=== PATIENT | female | born 1955 | race Caucasian/White ===

== ENCOUNTER 2019-02-28 13:20 | Observation (INO) | payer OTHER ==
[~2019-02-28] VITALS: Ht 165.1 cm; Wt 89.4 kg
[~2019-02-28 13:20] MED LIST changes: -DULO60CA56 PO; -OMEP-125 PO; -ROSU5TAB8 PO; -SITA100T PO
[2019-02-28] MEDS ORDERED: DULO60CA56 PO (13:39)
[2019-02-28] MEDS ORDERED: NS(*) 0.9% 1000 ML BAG 1,000 ML IV ONE ×3 (13:45→16:50)
[2019-02-28] MEDS ORDERED: ASPIRIN 81 MG CHEW PO ONE (13:45)
--- NOTE | 2019-02-28 13:49 | EKG ---
FACILITY: [facility] - [place] PATIENT NAME: TEREZA KAT : [id number] MR: [id number] V: [id number] EXAM DATE: ORDERING PHYSICIAN: DOUG ADORNO TECHNOLOGIST: BRIDGET Mcclain Reason : Blood Pressure : / mmHG Vent. Rate : 078 BPM Atrial Rate : 078 BPM P-R Int : 158 ms QRS Dur : 096 ms QT Int : 396 ms P-R-T Axes : 061 097 079 degrees QTc Int : 451 ms Normal sinus rhythm Low voltage QRS Borderline ECG When compared with ECG of 09-SEP-2017 18:42, No significant change was found Confirmed by STEFANY ROPER ([id number]) on 03/01/2019 6:38:08 AM Referred By: Confirmed By:STEFANY ROPER
[2019-02-28 14:06] LABS: PLATELET COUNT, AUTOMATED 419 K/uL (150-450)
[2019-02-28] MEDS ORDERED: IOPAMIDOL 76% 150 ML INFUS BTL 150 ML ONE (14:09)
[2019-02-28] MEDS ORDERED: NS(*) 0.9% 50 ML BAG 50 ML ONE (14:09)
--- NOTE | 2019-02-28 14:41 | RADIOLOGY IMAGING REPORT ---
FACILITY: [facility] PATIENT NAME: Neha Nielsen : 1955 MR: [id number] V: [id number] EXAM DATE: ORDERING PHYSICIAN: DOUG ADORNO TECHNOLOGIST: Location: [facility] - [place] Patient: Neha Nielsen : 1955 Visit/Account:[id number] Date of Sevice: 02/28/2019 2 VIEWS CHEST INDICATION: Chest pain. Syncope. COMPARISON: 09/09/2017. FINDINGS: Cardiomediastinal silhouette and pulmonary vessels within normal limits. There is no focal infiltrate or lobar consolidation. There is no pneumothorax or pleural effusion. No nodule. Upper abdomen is unremarkable. No acute bony abnormality. IMPRESSION: 1. No acute cardiopulmonary process. Report Dictated By: Abilio Wood at 02/28/2019 2:35 PM Report E-Signed By: Abilio Wood at 02/28/2019 2:36 PM WSN:[id number]
--- NOTE | 2019-02-28 14:53 | ER Report ---
History and Physical Time Seen By MD: 13:50 Hx. of Stated Complaint: PATIENT FOUND ON BATHROOM FLOOR.TATES SHE IS WEAK AND HAS DEC LOC. STATES ABD PAIN THAT FEELS LIKE SHE NEEDDS TO HAVE A BM. CLAMY TO TOUCH. HPI/ROS CHIEF COMPLAINT: Syncope HISTORY OF PRESENT ILLNESS: 63-year-old female history of diabetes had a witne ssed correction unwitnessed syncopal event she said that she got this morning had her normal breakfast was having a bowel movement and felt lightheaded and dizzy Off the Commode When She Was Going to the Sink She Got on Her Hands and Knees [place] Lightheaded and Had a with Unwitnessed Syncopal Episode. Patient That She Got up Herself off Sent Him Back on the Floor the 2nd Episode She Also Believes She Had Loss of Consciousness. Patient on Arrival Here Is Diaphoretic She Is Denying Any Chest Pain at This Time Feels Nauseated with Some Mild Abdominal Pain She Had an Active Bowel Movement Here That Had a Very Pungent Smell of C. difficile Patients Afterward She Did Feel Better since She Has Been Eating or Drinking Much Lately Denies Any Additional Complaints at This Time REVIEW OF SYSTEMS: Respiratory: No cough, no dyspnea. Cardiovascular: No chest pain, no palpitations. Gastrointestinal: No emesis mild abdominal discomfort relieved with bowel movement Musculoskeletal: No back pain. Remainder of the 14 system rev: Yes Allergies: Coded Allergies: No Known Allergies (Verified Allergy, Mild, 02/28/19) Home Meds Reported Medications Duloxetine Hcl (CYMBALTA) 60 Mg Capsule.dr, 60 MG PO DAILY, #10 CAP 02/28/19 Metformin Hcl (METFORMIN HCL) 1,000 Mg Tablet, 1 TAB PO BID, TAB 09/09/17 Rosuvastatin Calcium (CRESTOR) 10 Mg Tab, 10 MG PO QDAY, #5 TAB 09/09/17 Sitagliptin Phosphate (JANUVIA) 25 Mg Tablet, 25 MG PO QDAY 09/09/17 Levothyroxine Sodium (LEVOTHYROXINE SODIUM) 100 Mcg Tablet, 100 MCG PO QDAY, TAB 09/09/17 Reviewed Nurses Notes: Yes Old Medical Records Reviewed: Yes Hx Smoking: No Hx Substance Use Disorder: No Hx Alcohol Use: No Constitutional Vital Sign - Last 24 Hours 02/28/19 02/28/19 02/28/19 02/28/19 13:21 13:30 13:32 14:00 Temp 94.0 Pulse 96 83 77 Resp 22 22 18 B/P (MAP) 116/77 116/77 (90) Pulse Ox 93 91 94 O2 Delivery Nasal Cannula 02/28/19 02/28/19 02/28/19 02/28/19 14:01 14:02 14:04 14:06 B/P (MAP) 97/63 (74) 93/70 (78) 97/58 (71) O2 Flow Rate 2.0 02/28/19 02/28/19 02/28/19 02/28/19 14:34 15:00 15:41 16:00 Temp 97.5 Pulse 74 68 Resp 11 13 B/P (MAP) 90/73 (79) Pulse Ox 95 97 02/28/19 17:00 Pulse 71 Resp 6 Pulse Ox 97 Physical Exam General Appearance: The patient is alert, has no immediate need for airway protection and no current signs of toxicity. Diaphoretic appears ill Eyes: Pupils equal and round no injection. Respiratory: Chest is non tender, lungs are clear to auscultation. Cardiac: regular rate and rhythm [ ] Gastrointestinal: Abdomen is soft and non tender, no masses, bowel sounds normal. Musculoskeletal: Neck: Neck is supple and non tender. Extremities have full range of motion and are non tender. Skin: Diaphoretic cold and clammy [ ] DIFFERENTIAL DIAGNOSIS: After history and physical exam differential diagnosis was considered for pulmonary emboli aortic dissection cardiac ischemia I diabetic hypoglycemia dehydration and sepsis Medical Decision Making Data Points Result Diagram: 02/28/19 1331 02/28/19 1331 Laboratory Hematology Test 02/28/19 13:31 02/28/19 14:58 02/28/19 15:36 Red Blood Count 5.68 M/uL (4.17-5.56) Mean Corpuscular Volume 93.1 fL (80.0-96.0) Mean Corpuscular Hemoglobin 30.5 pg (26.0-33.0) Mean Corpuscular Hemoglobin Concent 32.8 g/dL (32.0-36.0) Red Cell Distribution Width 13.7 % (11.5-14.5) Mean Platelet Volume 7.9 fL (7.2-11.1) Neutrophils (%) (Auto) 38.0 % (39.4-72.5) Lymphocytes (%) (Auto) 51.9 % (17.6-49.6) Monocytes (%) (Auto) 9.4 % (4.1-12.4) Eosinophils (%) (Auto) 0.3 % (0.4-6.7) Basophils (%) (Auto) 0.4 % (0.3-1.4) Nucleated RBC Relative Count (auto) 0.1 /100WBC Neutrophils # (Auto) 2.5 K/uL (2.0-7.4) Lymphocytes # (Auto) 3.4 K/uL (1.3-3.6) Monocytes # (Auto) 0.6 K/uL (0.3-1.0) Eosinophils # (Auto) 0.0 K/uL (0.0-0.5) Basophils # (Auto) 0.0 K/uL (0.0-0.1) Nucleated RBC Absolute Count (auto) 0.01 K/uL D-Dimer Quantitative (PE/DVT) 5.67 ug/ml (0-0.50) Stool Occult Blood (IFOB) Positive (NEGATIVE) Stool Leukocytes, Qualitative Negative Sodium Level 137 mmol/L (137-145) Potassium Level 3.7 mmol/L (3.5-5.0) Chloride Level 102 mmol/L (98-107) Carbon Dioxide Level 19 mmol/L (22-31) Blood Urea Nitrogen 13 mg/dl (7-18) Creatinine 0.80 mg/dl (0.52-1.04) Glomerular Filtration Rate Calc > 60.0 Random Glucose 175 mg/dl (75-110) Calcium Level 10.3 mg/dl (8.4-10.2) Total Bilirubin 0.6 mg/dl (0.2-1.3) Aspartate Amino Transf (AST/SGOT) 49 U/L (0-35) Alanine Aminotransferase (ALT/SGPT) 42 U/L (0-56) Alkaline Phosphatase 90 U/L (0-126) Total Protein 8.2 g/dl (6.3-8.2) Albumin 4.8 g/dl (3.5-5.0) Lipase 253 U/L (23-300) C. difficile Toxin B Gene (PCR) Negative Clostridium Difficile Toxin A & B Negative Clostridium difficile Antigen Negative Lactate 2.7 mmol/L (0.7-2.1) Troponin I < 0.012 ng/ml Urine Color Yellow Urine Clarity Slightly-cloudy Urine pH 6.0 pH (4.8-9.5) Urine Specific [place] 1.054 Urine Protein Negative mg/dL (NEGATIVE) Urine Glucose (UA) Negative mg/dL (NEGATIVE) Urine Ketones Negative mg/dL (NEGATIVE) Urine Blood Negative (NEGATIVE) Urine Nitrite Negative (NEGATIVE) Urine Bilirubin Negative (NEGATIVE) Urine Urobilinogen Negative mg/dL (0.2-1.9) Urine Leukocyte Esterase Small (NEGATIVE) Urine RBC 1 /HPF (0-2/HPF) Urine WBC 3 /HPF (0-5/HPF) Urine Squamous Epithelial Cells Many /LPF (</=FEW) Urine Bacteria Few /HPF (NONE-FEW) Urine Hyaline Casts Few /LPF (NONE-FEW) Urine Mucus None /HPF (NONE-FEW) Chemistry Test 02/28/19 13:31 02/28/19 14:58 02/28/19 15:36 White Blood Count 6.6 k/uL (4.5-11.0) Red Blood Count 5.68 M/uL (4.17-5.56) Hemoglobin 17.3 g/dL (12.0-16.0) Hematocrit 52.9 % (34.0-47.0) Mean Corpuscular Volume 93.1 fL (80.0-96.0) Mean Corpuscular Hemoglobin 30.5 pg (26.0-33.0) Mean Corpuscular Hemoglobin Concent 32.8 g/dL (32.0-36.0) Red Cell Distribution Width 13.7 % (11.5-14.5) Platelet Count 419 K/uL (150-450) Mean Platelet Volume 7.9 fL (7.2-11.1) Neutrophils (%) (Auto) 38.0 % (39.4-72.5) Lymphocytes (%) (Auto) 51.9 % (17.6-49.6) Monocytes (%) (Auto) 9.4 % (4.1-12.4) Eosinophils (%) (Auto) 0.3 % (0.4-6.7) Basophils (%) (Auto) 0.4 % (0.3-1.4) Nucleated RBC Relative Count (auto) 0.1 /100WBC Neutrophils # (Auto) 2.5 K/uL (2.0-7.4) Lymphocytes # (Auto) 3.4 K/uL (1.3-3.6) Monocytes # (Auto) 0.6 K/uL (0.3-1.0) Eosinophils # (Auto) 0.0 K/uL (0.0-0.5) Basophils # (Auto) 0.0 K/uL (0.0-0.1) Nucleated RBC Absolute Count (auto) 0.01 K/uL D-Dimer Quantitative (PE/DVT) 5.67 ug/ml (0-0.50) Stool Occult Blood (IFOB) Positive (NEGATIVE) Stool Leukocytes, Qualitative Negative Glomerular Filtration Rate Calc > 60.0 Calcium Level 10.3 mg/dl (8.4-10.2) Total Bilirubin 0.6 mg/dl (0.2-1.3) Aspartate Amino Transf (AST/SGOT) 49 U/L (0-35) Alanine Aminotransferase (ALT/SGPT) 42 U/L (0-56) Alkaline Phosphatase 90 U/L (0-126) Total Protein 8.2 g/dl (6.3-8.2) Albumin 4.8 g/dl (3.5-5.0) Lipase 253 U/L (23-300) C. difficile Toxin B Gene (PCR) Negative Clostridium Difficile Toxin A & B Negative Clostridium difficile Antigen Negative Lactate 2.7 mmol/L (0.7-2.1) Troponin I < 0.012 ng/ml Urine Color Yellow Urine Clarity Slightly-cloudy Urine pH 6.0 pH (4.8-9.5) Urine Specific [place] 1.054 Urine Protein Negative mg/dL (NEGATIVE) Urine Glucose (UA) Negative mg/dL (NEGATIVE) Urine Ketones Negative mg/dL (NEGATIVE) Urine Blood Negative (NEGATIVE) Urine Nitrite Negative (NEGATIVE) Urine Bilirubin Negative (NEGATIVE) Urine Urobilinogen Negative mg/dL (0.2-1.9) Urine Leukocyte Esterase Small (NEGATIVE) Urine RBC 1 /HPF (0-2/HPF) Urine WBC 3 /HPF (0-5/HPF) Urine Squamous Epithelial Cells Many /LPF (</=FEW) Urine Bacteria Few /HPF (NONE-FEW) Urine Hyaline Casts Few /LPF (NONE-FEW) Urine Mucus None /HPF (NONE-FEW) Coagulation Test 02/28/19 13:31 D-Dimer Quantitative (PE/DVT) 5.67 ug/ml Urinalysis Test 02/28/19 15:36 Urine Color Yellow Urine Clarity Slightly-cloudy Urine pH 6.0 pH (4.8-9.5) Urine Specific [place] 1.054 Urine Protein Negative mg/dL (NEGATIVE) Urine Glucose (UA) Negative mg/dL (NEGATIVE) Urine Ketones Negative mg/dL (NEGATIVE) Urine Blood Negative (NEGATIVE) Urine Nitrite Negative (NEGATIVE) Urine Bilirubin Negative (NEGATIVE) Urine Urobilinogen Negative mg/dL (0.2-1.9) Urine Leukocyte Esterase Small (NEGATIVE) Urine RBC 1 /HPF (0-2/HPF) Urine WBC 3 /HPF (0-5/HPF) Urine Squamous Epithelial Cells Many /LPF (</=FEW) Urine Bacteria Few /HPF (NONE-FEW) Urine Hyaline Casts Few /LPF (NONE-FEW) Urine Mucus None /HPF (NONE-FEW) Microbiology Microbiology Date/Time Source Procedure Growth Status 02/28/19 13:31 Stool Gram Stain - Final Resulted 02/28/19 13:31 Stool Stool Culture Pending Resulted ED Course/Re-evaluation ED Course ED course a 53-year-old female presents to emergency department today with [address] angiogram of the chest looking for dissection or pulmonary emboli were negative follow-up CT the abdomen and pelvis with no skin ball she did have upper lactic acid of 2.7 hypertensive throughout her stay after 2 L of fluid slight urinary tract infection very scant no clear obvious source of infection but hypotension hypothermia concern about sepsis we'll start her on fluid resuscitation the emergency department and admit her up to the floor diagnosis early urinary tract sepsis Decision to Disposition Date: Feb 28, 2019 Decision to Disposition Time: 17:34 Depart Departure Latest Vital Signs Vital Signs Date Time Temp Pulse Resp B/P (MAP) Pulse Ox O2 Delivery O2 Flow Rate FiO2 02/28/19 17:00 71 6 97 02/28/19 15:41 97.5 02/28/19 14:34 90/73 (79) 02/28/19 14:01 2.0 02/28/19 13:21 Nasal Cannula Impression: Primary Impression: Sepsis Condition: Improved Disposition: Admitted from ER Referrals: ANANYA ZURITA (PCP) DOUG ADORNO MD Feb 28, 2019 14:53
--- NOTE | 2019-02-28 15:12 | RADIOLOGY IMAGING REPORT ---
FACILITY: [facility] PATIENT NAME: Neha Nielsen : 1955 MR: [id number] V: [id number] EXAM DATE: ORDERING PHYSICIAN: DOUG ADORNO TECHNOLOGIST: Location: [facility] [place] Patient: Neha Nielsen : 1955 Visit/Account:[id number] Date of Sevice: 02/28/2019 CT CTA CHEST and abdomen W & W/O CON HISTORY: ab pain syncope ADDITIONAL HISTORY: None. TECHNIQUE: CTA chest and abdomen with and without intravenous contrast. Axial imaging acquired pre and post administration of IV contrast timed for maximum opacification of the thoracic and abdominal aorta slab 3-D MIP reconstructed images were also created for further evaluation and interpretation. Reconstruction of the source data set includes multiplanar 2-D in the sagittal and coronal planes and 3-D reconstructed coronal slab MIP series. 3-D images were created by the technologist.Dose Lowerin g Technique One of the following dose optimization techniques was utilized in the performance of this exam: Autom ated exposure control; adjustment of the mA and/or kV according to the patient's size; or use of an i terative reconstruction technique. Specific details can be referenced in the facility's radiology C T exam operational policy. CONTRAST: 100 mL Isovue-370 COMPARISON: September 09, 2017 FINDINGS: Lungs/pleura: Negative. Heart/vessels: There is no evidence of a thoracic or abdominal aortic aneurysm or dissection. No si gnificant narrowing identified at the origins of the renal arteries, NIESHA, SMA or celiac trunk. There are minimal atherosclerotic calcifications in the infrarenal abdominal aorta and minimal calcificati ons in the aortic arch and proximal left subclavian artery. Pulmonary arterial tree is relatively we ll opacified as well demonstrating no gross evidence of pulmonary emboli. Mediastinum/lymph nodes: Negative. Visualized upper abdomen: Arterial phase imaging of the liver spleen pancreas adrenal glands and bot h kidneys are unremarkable. Fluid and particulate material are noted within the stomach which may be related to a recent meal. There is no evidence of bowel obstruction. The visual as portion the appendix appears unremarkable.. There is a fluid-filled diverticulum projecting from the third portion of the duodenum. There are small shotty mesenteric lymph nodes Bones/soft tissues: There is a small umbilical hernia containing fat There are moderate spondylotic changes in the lower thoracic upper lumbar spine Additional findings: None IMPRESSION: No evidence of thoracic or abdominal aortic aneurysm or dissection. Minimal atherosclerotic calcific ations as described above. Fluid and particulate material are noted within stomach which may be related to a recent meal No evidence of bowel obstruction Small shotty mesenteric lymph nodes Small umbilical hernia containing fat Spondylotic changes of the thoracolumbar spine Results were called to DOUG ADORNO at 02/28/2019 3:08 PM. Report Dictated By: Nidia Yates MD at 02/28/2019 2:47 PM Report E-Signed By: Nidia Yates MD at 02/28/2019 3:08 PM WSN:[id number]
--- NOTE | 2019-02-28 16:02 | RADIOLOGY IMAGING REPORT ---
FACILITY: [facility] - [place] PATIENT NAME: Neha Nielsen : 1955 MR: [id number] V: [id number] EXAM DATE: ORDERING PHYSICIAN: DOUG ADORNO TECHNOLOGIST: Location: [facility] - [place] Patient: Neha Nielsen : 1955 Visit/Account:[id number] Date of Sevice: 02/28/2019 CT Head without contrast Indication: Syncope. Comparison: 09/09/2017. Technique: Axial CT images were obtained through the brain from the skull base to the vertex without administration of IV contrast. Reformatted coronal and sagittal images were also obtained. One of the following dose optimization techniques was utilized in the performance of this exam: autom ated exposure control; adjustment of the mA and/or kV according to the patient's size; or use of an i terative reconstruction technique. Specific details can be referenced in the facility's radiology CT exam operational policy. Findings: No evidence of mass, mass effect, or midline shift. No acute intracranial hemorrhage or acute territorial infarction. No extra-axial fluid collection or hydrocephalus. No abnormal density. Goyal/white matter differentiat ion appears normal. Residual contrast is present from the recent CT pulmonary angiogram. Vasculature appears unremarkable. No appreciable enhancing lesions or abnormal enhancement. Bony structures show no fractures or lesions. Leftward deviation nasal septum. Mild mucosal thickening seen both maxillary sinuses. The remaining sinuses and mastoids visualized ar e clear. IMPRESSION: 1. No acute intracranial abnormality. 2. Mild maxillary sinus disease. Report Dictated By: Abilio Wood at 02/28/2019 3:52 PM Report E-Signed By: Abilio Wood at 02/28/2019 3:58 PM WSN:[id number]
[2019-02-28] MEDS ORDERED: LEVOFLOXACIN/D5W*500 MG/100 ML 100 ML IVPB ONE (17:35)
--- NOTE | 2019-02-28 17:40 | RADIOLOGY IMAGING REPORT ---
FACILITY: [facility] PATIENT NAME: Neha Nielsen : 1955 MR: [id number] V: [id number] EXAM DATE: ORDERING PHYSICIAN: DOUG ADORNO TECHNOLOGIST: Location: [facility] Patient: Neha Nielsen : 1955 Visit/Account:[id number] Date of Sevice: 02/28/2019 CT PELVIS W/O CON HISTORY: Abdominal pain CT scan of the pelvis without contrast. Axial images from the iliac crest to the pubic symphysis. Rec onstructed sagittal and coronal scans obtained as well. One of the following dose optimization techniques was utilized in the performance of this exam: Autom ated exposure control; adjustment of the mA and/or kV according to the patient's size; or use of an i terative reconstruction technique. Specific details can be referenced in the facility's radiology C T exam operational policy. This represents the pelvic portion of the abdominal CT scan of the abdomen/pelvis ordered by the ER sheron miller. The abdominal portion this study was initially seen on the CTA of the chest that went down to the iliac crest. That study has been dictated. The admitting physician feels a CT scan of the pelv is without contrast should be sufficient for complete evaluation of the abdomen and pelvis this time. Patient on metformin. No additional contrast desired at this time FINDINGS: The visualized pelvis demonstrates no obvious acute pathology. There is no bowel inflammation or nola l wall edema or any pericolonic or mesenteric inflammation. No interloop fluid. Visualized pelvic str uctures are unremarkable. Uterus and adnexal regions are normal. Contrast within a normal-appearing bladder. Bony and soft tissue structures unremarkable. IMPRESSION: 1. Negative pelvis for acute pathology. Report Dictated By: Luke Bojorquez MD at 02/28/2019 4:59 PM Report E-Signed By: Luke Bojorquez MD at 02/28/2019 5:36 PM WSN:[id number]
[2019-02-28 18:13] VITALS: BP 113/66
[2019-02-28] MEDS ORDERED: INSULIN HUM LISPRO 100 UN/ML 3 ML VIAL SUBQ PRN (19:20)
[2019-02-28] MEDS ORDERED: NS(*) 0.9% 1000 ML BAG 1,000 ML IV PRN (19:20)
[2019-02-28] MEDS ORDERED: ROSU5TAB8 PO ×2 (19:20)
[2019-02-28] MEDS ORDERED: OMEP-125 PO (19:20)
[2019-02-28] MEDS ORDERED: SITA100T PO (19:20)
--- NOTE | 2019-02-28 19:30 | History & Physical ---
History of Present Illness Chief Complaint Syncope History of Present Illness This patient presented to the emergency room complaining of several syncopal episodes this morning. She reports that she awoke with a strong urge to have a bowel movement, but when she got to the toilet she felt very faint and thought she would pass out. She lowered herself to the floor and did have several syncopal episodes. She was then able to call EMS for assistance. She did have an explosive bowel movement in the emergency room, and then reports feeling much better. She does still feel lightheaded with standing. History Problems: (1) DM2 (diabetes mellitus, type 2) (2) Depression (3) Hypothyroid Home Meds Reported Medications Rosuvastatin Calcium (CRESTOR) 5 Mg Tablet, 5 MG PO QDAY 02/28/19 Omeprazole (OMEPRAZOLE) 20 Mg Capsule.dr, 1 CAP PO BID, CAP 02/28/19 Sitagliptin Phosphate (JANUVIA) 100 Mg Tablet, 100 MG PO QDAY 02/28/19 Duloxetine Hcl (CYMBALTA) 60 Mg Capsule.dr, 60 MG PO DAILY, #10 CAP 02/28/19 Metformin Hcl (METFORMIN HCL) 1,000 Mg Tablet, 1 TAB PO BID, TAB 09/09/17 Levothyroxine Sodium (LEVOTHYROXINE SODIUM) 100 Mcg Tablet, 100 MCG PO QDAY, TAB 09/09/17 Discontinued Reported Medications Rosuvastatin Calcium (CRESTOR) 5 Mg Tablet, 5 MG PO QDAY 02/28/19 Rosuvastatin Calcium (CRESTOR) 10 Mg Tab, 5 MG PO QDAY, #5 TAB 09/09/17 Sitagliptin Phosphate (JANUVIA) 25 Mg Tablet, 25 MG PO QDAY 09/09/17 Allergies: Coded Allergies: No Known Allergies (Verified Allergy, Mild, 02/28/19) Patient History: FH: non-Hodgkin's lymphoma FATHER Hx Smoking: No (10 year smoker, 40 years ago) Smoking Status: Former Smoker Caffeine Intake: Coffee, Tea Caffeine/Cups Per Day: 3-4 cups.day Hx Alcohol Use: No Hx Substance Use Disorder: No Review of Systems All Systems Reviewed/Normal: Yes, Except as Noted Neurological: Syncope Exam Vital Signs Vital Signs Date Time Temp Pulse Resp B/P (MAP) Pulse Ox O2 Delivery O2 Flow Rate FiO2 02/28/19 18:13 97.8 64 16 113/66 (82) 95 Nasal Cannula 2.0 Cardiovascular: Regular Rate and Rhythm GI: Abd Soft and Non-Tender Extremities: No Edema Integumentary: No Cyanosis Medical Decision Making Data Points Result Diagram: 02/28/19 1331 02/28/19 1331 Assessment and Plan Problems: (1) Sepsis Status: Acute Assessment & Plan: She did have hypothermia and an elevated lactate levels. The etiology is unclear since she had no other symptoms other than one episode of diarrhea. She has small leukocytes in the urine, but no urinary symptoms. She received a dose of levofloxacin in the emergency department. Stool culture were done, but blood and urine cultures were not collected prior to her first dose of antibiotic. We will treat her with fluids and continued levofloxacin overnight. Blood and urine cultures are requested. Repeat lab studies are ordered for the morning. (2) Syncope Assessment & Plan: This is likely related to her sepsis. We will reevaluate her after fluids. (3) DM2 (diabetes mellitus, type 2) Assessment & Plan: She is on chronic treatment with metformin and Januvia. Both of those medications are held (she did receive contrast). She has been placed on sliding scale level #2. (4) Hypothyroid Assessment & Plan: She is on chronic treatment with Synthroid. (5) Depression Assessment & Plan: She is on chronic treatment with duloxetine. Venous Thromboembolism Antithrombotics Is Pt On Any Antithrombotics?: No Exam Sepsis Risk: Possible Severe Sepsis Risk STEFANY ROPER DO Feb 28, 2019 19:30
[2019-02-28 21:23] VITALS: BP 107/62
[2019-02-28 23:23] VITALS: BP 102/57
[2019-03-01 02:15] VITALS: BP 107/58
[2019-03-01 05:34] LABS: PLATELET COUNT, AUTOMATED 255 K/uL (150-450)
[2019-03-01] MEDS ORDERED: LEVOTHYROXINE SOD 0.1 MG TAB PO SCH (06:00)
[2019-03-01] MEDS ORDERED: DULoxetine HCL 30 MG CAPCR PO SCH (09:00)
[2019-03-01 09:02] VITALS: BP 124/70
--- NOTE | 2019-03-01 09:14 | Hospitalist Progress Note ---
Subjective Progress Notes Subjective She reports doing well. No dizziness/lightheadedness. No fever. WBC count has remained normal. In reviewing past history, she reports a few similar episodes in the past couple of years. All have been associated with sensation of abdominal bloating followed by the feeling of some cramps and need to have BM. She will then become sweaty/clammy/dizzy and feel as if she may pass out. Her symptoms will then pass after she has BM. Usually the BM is semi-solid, non- bloody, non-mucousy. She did not have any urinary symptoms. Physical Exam Vital Signs Date Time Temp Pulse Resp B/P (MAP) Pulse Ox O2 Delivery O2 Flow Rate FiO2 03/01/19 06:13 82 03/01/19 04:00 69 03/01/19 02:15 97.9 18 107/58 (74) Nasal Cannula 2.0 Intake and Output 03/01/19 06:59 Intake Total 1500 ml Balance 1500 ml Intake Oral 400 ml IV Total 1100 ml # Voids 2 # Bowel Movements 1 General Appearance: Alert, Awake Cardiovascular: Regular Rate and Rhythm Respiratory: Clear to Auscultation GI: Soft and Non-Tender (BS present) Extremities: Warm, Perfused Result Diagram: 03/01/1952303/01/19523 Assessment and Plan Problems: (1) Syncope Assessment & Plan: It sounds like she probably had a vaso-vagal episode following possible delayed gastric emptying/"dumping". This certainly could be related to her history of type 2 DM (duration 10-12 years). It sounds like she has had at least 2-3 similar episodes over past few years as well. We discussed keeping up with fluid intake, stopping metformin (due to lactic acidosis), working with dietary on modifications to reduce risk of it recurring. It does not appear she has UTI. The antibiotics will be stopped. (2) Lactic acidosis Status: Acute Assessment & Plan: Probably due to metformin and exacerbated by dehydration. She has improved/resolved with IV fluids and stopping metformin. She will not be restarted on metformin. (3) DM2 (diabetes mellitus, type 2) Assessment & Plan: She is on chronic treatment with metformin and Januvia. The metformin will be stopped completely due to the lactic acidosis. Will continue the Januvia. She has been placed on sliding scale insulin. Will have her discuss diet with the dieticians. (4) Hypothyroid Assessment & Plan: She is on chronic treatment with Synthroid. (5) Depression Assessment & Plan: She is on chronic treatment with duloxetine. Exam Sepsis Risk: No Definite Risk BARBARA JORGE MD Mar 01, 2019 09:14
--- NOTE | 2019-03-01 10:08 | Hospitalist Depart ---
Discharge Summary Reason for Hosp/Final Diag: (1) Lactic acidosis Status: Acute Hospital Course & Plan: Probably due to metformin and exacerbated by dehydration. She has improved/resolved with IV fluids and stopping metformin. She will not be restarted on metformin. (2) Syncope Hospital Course & Plan: In reviewing her past history and symptoms, it sounds like she probably had a vaso-vagal episode following suspected delayed gastric emptying/"dumping". This certainly could be related to her history of type 2 DM (duration 10-12 years). It sounds like she has had at least 2-3 similar episodes over past few years as well. We discussed keeping up with fluid intake, stopping metformin (due to lactic acidosis), working with dietary on modifications to reduce risk of it recurring. She may benefit from evaluation with gastroenterology as well. It does not appear she has UTI. The antibiotics were stopped. (3) DM2 (diabetes mellitus, type 2) Hospital Course & Plan: She has been on chronic treatment with metformin and Januvia. The metformin will be stopped completely due to the lactic acidosis. Will continue the Januvia. She was placed on sliding scale insulin during her stay. She was also able discuss her diet with the dieticians. (4) Hypothyroid Status: Chronic Hospital Course & Plan: She is on chronic treatment with Synthroid. (5) Depression Status: Chronic Hospital Course & Plan: She is on chronic treatment with duloxetine. Departure Weight (Pounds): 197 Result Diagram: 03/01/1952303/01/19 05 Item Value Date Time White Blood Count 6.6 k/uL 02/28/19 1331 Hemoglobin 17.3 g/dL H 02/28/19 1331 Hematocrit 52.9 % H 02/28/19 1331 Platelet Count 419 K/uL 02/28/19 1331 Troponin I < 0.012 ng/ml 02/28/19 1458 Lactate 2.7 mmol/L H 02/28/19 1458 Lactate 1.1 mmol/L 03/01/19 0524 Calcium Level 8.4 mg/dl 03/01/19 05 Total Bilirubin 0.4 mg/dl 03/01/19 0524 Aspartate Amino Transf (AST/SGOT) 24 U/L 03/01/19 0524 Alanine Aminotransferase (ALT/SGPT) 41 U/L 03/01/19 0524 Alkaline Phosphatase 52 U/L 03/01/19 0524 Total Protein 5.6 g/dl L 03/01/19 0524 Albumin 3.2 g/dl L 03/01/19 0524 Lipase 253 U/L 02/28/19 1331 Albumin 4.8 g/dl 02/28/19 1331 Total Protein 8.2 g/dl 02/28/19 1331 Troponin I < 0.012 ng/ml 02/28/19 1331 Alkaline Phosphatase 90 U/L 02/28/19 1331 Alanine Aminotransferase (ALT/SGPT) 42 U/L 02/28/19 1331 Aspartate Amino Transf (AST/SGOT) 49 U/L H 02/28/19 1331 Total Bilirubin 0.6 mg/dl 02/28/19 1331 Calcium Level 10.3 mg/dl H 02/28/19 1331 Random Glucose 175 mg/dl H 02/28/19 1331 Glomerular Filtration Rate Calc > 60.0 02/28/19 1331 Creatinine 0.80 mg/dl 02/28/19 1331 Blood Urea Nitrogen 13 mg/dl 02/28/19 1331 Carbon Dioxide Level 19 mmol/L L 02/28/19 1331 Chloride Level 102 mmol/L 02/28/19 1331 Potassium Level 3.7 mmol/L 02/28/19 1331 Sodium Level 137 mmol/L 02/28/19 1331 Stool Leukocytes, Qualitative Negative 02/28/19 1331 Stool Occult Blood (IFOB) Positive H 02/28/19 1331 Clostridium difficile Antigen Negative 02/28/19 1331 Clostridium Difficile Toxin A & B Negative 02/28/19 1331 C. difficile Toxin B Gene (PCR) Negative 02/28/19 1331 Urine Mucus None /HPF 02/28/19 1536 Urine Hyaline Casts Few /LPF 02/28/19 1536 Urine Bacteria Few /HPF 02/28/19 1536 Urine Squamous Epithelial Cells Many /LPF H 02/28/19 1536 Urine WBC 3 /HPF 02/28/19 1536 Urine RBC 1 /HPF 02/28/19 1536 Urine Leukocyte Esterase Small H 02/28/19 1536 Urine Urobilinogen Negative mg/dL 02/28/19 1536 Urine Bilirubin Negative 02/28/19 1536 Urine Nitrite Negative 02/28/19 1536 Urine Blood Negative 02/28/19 1536 Urine Ketones Negative mg/dL 02/28/19 1536 Urine Glucose (UA) Negative mg/dL 02/28/19 1536 Urine Protein Negative mg/dL 02/28/19 1536 Urine Specific [place] 1.054 02/28/19 1536 Urine pH 6.0 pH 02/28/19 1536 Urine Clarity Slightly-cloudy 02/28/19 1536 Urine Color Yellow 02/28/19 1536 D-Dimer Quantitative (PE/DVT) 5.67 ug/ml H 02/28/19 1331 [facility] *LIVE* [address] [place] [address] RAFAELA FERGUSON M.D., DIRECTOR OF LABORATORY SERVICES JUANA ROSEN M.D., PATHOLOGIST RUN DATE: 02/28/19 Specimen Inquiry Report PAGE 1 RUN TIME: 1617 ------- ----- PATIENT: NEHA KAT Charisma ACCT: [id number] LOC: DAVE U: [id number] AGE/SX: 63/F ROOM: RE02/28/[address]: DOUG ADORNO MD : 1955 BED: DIS: STATUS: JAMES ACOSTA TLOC: SPEC #: [id number] TAURUS: 02/28/19 STATUS: RES REQ #: [id number] RECD: 02/28/[address] [facility] [address]: DOUG ADORNO MD SOURCE: STOOL ENTR: 04/ [facility] DR: ANANYA ZURITA [facility]: ORDERED: CULT STOOL/GS Procedure Result Verified GRAM STAIN Final 02/28/19 NO WHITE BLOOD CELLS MIXED GRAM POS AND NEG BACTERIA CONSISTENT WITH NORMAL JV STOOL CULTURE PENDING ----- ------- Imaging PATIENT NAME: Neha Kat : 1955 MR: [id number] V: [id number] EXAM DATE: [id number] ORDERING PHYSICIAN: DOUG ADORNO TECHNOLOGIST: Location: [facility] Patient: Neha Kat : 1955 Visit/Account:[id number] Date of Sevice: 02/28/2019 2 VIEWS CHEST INDICATION: Chest pain. Syncope. COMPARISON: 09/09/2017. FINDINGS: Cardiomediastinal silhouette and pulmonary vessels within normal limits. There is no focal infiltrate or lobar consolidation. There is no pneumothorax or pleural effusion. No nodule. Upper abdomen is unremarkable. No acute bony abnormality. IMPRESSION: 1. No acute cardiopulmonary process. Report Dictated By: Abilio Wood at 02/28/2019 2:35 PM Report E-Signed By: Abilio Wood at 02/28/2019 2:36 PM WSN:[id number] PATIENT NAME: Neha Kat : 1955 MR: [id number] V: [id number] EXAM DATE: [id number] ORDERING PHYSICIAN: DOUG ADORNO TECHNOLOGIST: Location: [facility] Patient: Neha Kat : 1955 Visit/Account:[id number] Date of Sevice: 02/28/2019 CT CTA CHEST and abdomen W & W/O CON HISTORY: ab pain syncope ADDITIONAL HISTORY: None. TECHNIQUE: CTA chest and abdomen with and without intravenous contrast. Axial imaging acquired pre and post administration of IV contrast timed for maximum opacification of the thoracic and abdominal aorta slab 3-D MIP reconstructed images were also created for further evaluation and interpretation. Reconstruction of the source data set includes multiplanar 2-D in the sagittal and coronal planes and 3-D reconstructed coronal slab MIP series. 3-D images were created by the technologist.Dose Lowering Technique One of the following dose optimization techniques was utilized in the performance of this exam: Automated exposure control; adjustment of the mA and/or kV according to the patient's size; or use of an iterative reconstruction technique. Specific details can be referenced in the facility's radiology CT exam operational policy. CONTRAST: 100 mL Isovue-370 COMPARISON: September 09, 2017 FINDINGS: Lungs/pleura: Negative. Heart/vessels: There is no evidence of a thoracic or abdominal aortic aneurysm or dissection. No significant narrowing identified at the origins of the renal arteries, NIESHA, SMA or celiac trunk. There are minimal atherosclerotic calcifications in the infrarenal abdominal aorta and minimal calcifications in the aortic arch and proximal left subclavian artery. Pulmonary arterial tree is relatively well opacified as well demonstrating no gross evidence of pulmonary emboli. Mediastinum/lymph nodes: Negative. Visualized upper abdomen: Arterial phase imaging of the liver spleen pancreas adrenal glands and both kidneys are unremarkable. Fluid and particulate material are noted within the stomach which may be related to a recent meal. There is no evidence of bowel obstruction. The visual as portion the appendix appears unremarkable.. There is a fluid-filled diverticulum projecting from the third portion of the duodenum. There are small shotty mesenteric lymph nodes Bones/soft tissues: There is a small umbilical hernia containing fat There are moderate spondylotic changes in the lower thoracic upper lumbar spine Additional findings: None IMPRESSION: No evidence of thoracic or abdominal aortic aneurysm or dissection. Minimal atherosclerotic calcifications as described above. Fluid and particulate material are noted within stomach which may be related to a recent meal No evidence of bowel obstruction Small shotty mesenteric lymph nodes Small umbilical hernia containing fat Spondylotic changes of the thoracolumbar spine Results were called to DOUG ADORNO at 02/28/2019 3:08 PM. Report Dictated By: Nidia Yates MD at 02/28/2019 2:47 PM Report E-Signed By: Nidia Yates MD at 02/28/2019 3:08 PM WSN:[id number] PATIENT NAME: Neha Kat : 1955 MR: [id number] V: [id number] EXAM DATE: ORDERING PHYSICIAN: DOUG ADORNO TECHNOLOGIST: Location: [facility] Patient: Neha Kat : 1955 Visit/Account:[id number] Date of Sevice: 02/28/2019 CT Head without contrast Indication: Syncope. Comparison: 09/09/2017. Technique: Axial CT images were obtained through the brain from the skull base to the vertex without administration of IV contrast. Reformatted coronal and sagittal images were also obtained. One of the following dose optimization techniques was utilized in the performance of this exam: automated exposure control; adjustment of the mA and/or kV according to the patient's size; or use of an iterative reconstruction technique. Specific details can be referenced in the facility's radiology CT exam operational policy. Findings: No evidence of mass, mass effect, or midline shift. No acute intracranial hemorrhage or acute territorial infarction. No extra-axial fluid collection or hydrocephalus. No abnormal density. Goyal/white matter differentiation appears normal. Residual contrast is present from the recent CT pulmonary angiogram. Vasculature appears unremarkable. No appreciable enhancing lesions or abnormal enhancement. Bony structures show no fractures or lesions. Leftward deviation nasal septum. Mild mucosal thickening seen both maxillary sinuses. The remaining sinuses and mastoids visualized are clear. IMPRESSION: 1. No acute intracranial abnormality. 2. Mild maxillary sinus disease. Report Dictated By: Abilio Wood at 02/28/2019 3:52 PM Report E-Signed By: Abilio Wood at 02/28/2019 3:58 PM WSN:[id number] PATIENT NAME: Neha Kat : 1955 MR: [id number] V: [id number] EXAM DATE: ORDERING PHYSICIAN: DOUG ADORNO TECHNOLOGIST: Location: [facility] Patient: Neha Kat : 1955 Visit/Account:[id number] Date of Sevice: 02/28/2019 CT PELVIS W/O CON HISTORY: Abdominal pain CT scan of the pelvis without contrast. Axial images from the iliac crest to the pubic symphysis. Reconstructed sagittal and coronal scans obtained as well. One of the following dose optimization techniques was utilized in the performance of this exam: Automated exposure control; adjustment of the mA and/or kV according to the patient's size; or use of an iterative reconstruction technique. Specific details can be referenced in the facility's radiology CT exam operational policy. This represents the pelvic portion of the abdominal CT scan of the abdomen/pelvis ordered by the ER physician. The abdominal portion this study was initially seen on the CTA of the chest that went down to the iliac crest. That study has been dictated. The admitting physician feels a CT scan of the pelvis without contrast should be sufficient for complete evaluation of the abdomen and pelvis this time. Patient on metformin. No additional contrast desired at this time FINDINGS: The visualized pelvis demonstrates no obvious acute pathology. There is no bowel inflammation or bowel wall edema or any pericolonic or mesenteric inflammation. No interloop fluid. Visualized pelvic structures are unremarkable. Uterus and adnexal regions are normal. Contrast within a normal-appearing bladder. Bony and soft tissue structures unremarkable. IMPRESSION: 1. Negative pelvis for acute pathology. Report Dictated By: Luke Bojorquez MD at 02/28/2019 4:59 PM Report E-Signed By: Luke Bojorquez MD at 02/28/2019 5:36 PM WSN:[id number] EKG PATIENT NAME: NEHA KAT : [id number] MR: [id number] V: [id number] EXAM DATE: ORDERING PHYSICIAN: DOUG ADORNO TECHNOLOGIST: BRIDGET Mcclain Reason : Blood Pressure : / mmHG Vent. Rate : 078 BPM Atrial Rate : 078 BPM P-R Int : 158 ms QRS Dur : 096 ms QT Int : 396 ms P-R-T Axes : 061 097 079 degrees QTc Int : 451 ms Normal sinus rhythm Low voltage QRS Borderline ECG When compared with ECG of 09-SEP-2017 18:42, No significant change was found Confirmed by STEFANY ROPER ([id number]) on 03/01/2019 6:38:08 AM Referred By: Confirmed By:STEFANY ROPER Condition: Improved Discharge: Home, Self Care Follow-Up Labs: Finger Sticks (3-4 times a day and keep record for all follow up appointments) Time Spent: > 30 min Discharge Instructions Home Meds Reported Medications Rosuvastatin Calcium (CRESTOR) 5 Mg Tablet, 5 MG PO QDAY 02/28/19 Omeprazole (OMEPRAZOLE) 20 Mg Capsule.dr, 1 CAP PO BID, CAP 02/28/19 Sitagliptin Phosphate (JANUVIA) 100 Mg Tablet, 100 MG PO QDAY 02/28/19 Duloxetine Hcl (CYMBALTA) 60 Mg Capsule.dr, 60 MG PO DAILY, #10 CAP 02/28/19 Levothyroxine Sodium (LEVOTHYROXINE SODIUM) 100 Mcg Tablet, 100 MCG PO QDAY, TAB 09/09/17 Discontinued Reported Medications Metformin Hcl (METFORMIN HCL) 1,000 Mg Tablet, 1 TAB PO BID, TAB 09/09/17 Rosuvastatin Calcium (CRESTOR) 5 Mg Tablet, 5 MG PO QDAY 02/28/19 Rosuvastatin Calcium (CRESTOR) 10 Mg Tab, 5 MG PO QDAY, #5 TAB 09/09/17 Sitagliptin Phosphate (JANUVIA) 25 Mg Tablet, 25 MG PO QDAY 09/09/17 Follow up Referrals: Family Practice with ANANYA ZURITA Diet: Diabetic Activity: As Tolerated Special Instructions: Follow up with Ananya DIAZ in next 5-7 days or sooner if any problems. DO NOT TAKE metformin any longer. Copies to: ANANYA ZURITA ; Venous Thromboembolism Antithrombotics Is Pt On Any Antithrombotics?: No BARBARA OJRGE MD Mar 01, 2019 10:08
--- NOTE | 2019-03-01 15:20 | Medical Nutrition Therapy ---
Nutrition Anthropometrics Height (Inches): 65.00 Height (Calculated Centimeters: 165.606629 Weight (Pounds): 197 Weight (Calculated Kilograms): 89.358 BMI: 32.8 Enrique Nutrition Score: Adequate Enrique Nutrition Risk Score: 21 Dietary Referral Nutrition Risk Factors: Nutrition Risk Comment: Physical Findings Physical Appearance: Obese BMI 30-39 Skin Appearance Skin Appearance: Edema Edema Location Modifier: Edema Location: Type of Edema: Degree of Edema: Gastrointestinal Symptoms GI Symtoms: Tube Present: Bowel Sounds: Recent Bowel Pattern: Stool Characteristics: Nutrition/Food History Breakfast: CIB 1/4c nuts Lunch: vietnamese yogurt, fuit, 1/4c nuts Dinner: 5c salad, meat Snacks: nuts Nutritional Diagnosis Nutritional Risk Acuity 2: Sepsis Nutritional Risk Acuity 3: Fair Appetite Nutritional Acuity: 2-Moderate Nutrition Diagnosis: Altered GI Function Nutrition Etiology: Physiological Causes Nutrition Problem/Etiology/Sym: AEB dx delayed gstic emptying Adjusted Energy Requirement Re: 2225 (25kcl/kg) Protein Requirement: 71 (.8gm/kg) Fluid Requirement: 2225 (1ml/kg) Diet Type: Diabetic Nutrition Intervention: Cont diet as ordered, Encourage intake Nutritional Education Nutrition Education Topic: Diabetic Nutrition (with delyed gstic emplying) Learning Readiness: Interested Teaching Methods: Discussion, Handout Response to Teaching: Verbalize understanding, Reinforcement needed Teaching Recipient: Patient Nutrition Counseling: Pt with new dx of delayed gastic emptying. Pt eating high fiber, high fat diet. Encouraged limiting salad and limiting fat. Encouraged pt to cut back on nuts and reviewed portion size for nuts. Reviwed diabetic diet and encouraged 2-3CHO/meal with cooked veg, 23-oz corona meats and 1-2 serving fat/meal. Nutrition Monitoring & Eval RD Patient Assessment Time: [address] Assessment Type: RD Assessment Patient Nutrition Acuity: 2-Moderate Follow Up Date: Mar 05, 2019 Nutritional Comment: 03/01 Pt admitted for sepsis, lactic acidosis, and new dx delayed gasitic emptying . Reviewed diet for diabetes and delayed gastric emptying. Pt ate 40% of diabeic dir. Alb 3.2. Will cont to monitor and encourage intake. YOSSI COLON Mar 01, 2019 15:20
[2019-03-01] MEDS ORDERED: LEVOFLOXACIN/D5W 750 MG/150 ML 150 ML IVPB SCH (17:00)
[2019-03-02] MEDS ORDERED: INFLUENZA VIRUS VAC 0.5ML SYR IM ONLY ONE (19:20)
== END 2019-03-01 09:57 | disposition home or self-care (01) ==
LOC: ER 13:40 → MED 17:47 → INTOOBSV 17:47
PROVIDERS: ADMIT Family Medicine; ATTEND Family Medicine
DX: A41.9 Sepsis, unspecified organism (principal); D11.9 Benign neoplasm of major salivary gland, unspecified; E03.9 Hypothyroidism, unspecified; F32.9 Major depressive disorder, single episode, unspecified; E87.2 Acidosis
CPT/HCPCS: 36415; 36416; 70450; 71046; 71275; 72192; 81001; 82274; 82948; 83605; 83630; 83690; 84484; 85025; 85379; 87040; 87045; 87088; 87205; 87324; 87449; 87493; 93005; 96360; 96361; 96372; 99284; G0378; J1815; J1956; J7030; J7050; Q9967; 82040; 82247; 82310; 82374; 82435; 82565; 82947; 84075; 84132; 84155; 84295; 84450; 84460; 84520

== ENCOUNTER → 2019-02-28 | Outpatient (CLI) | payer OTHER ==
[~2019-02-28] MED LIST: ACTOS; CRESTOR; DULO60CA56 PO; KET10 PO; LEVO-3 PO; LEVOTHYROXIN; LOR5 PO; METF-452 PO; METFORMIN; OMEP-125 PO; ROSU10TA PO; ROSU5TAB8 PO; SITA100T PO; SITA25TA PO; [UNRECOGNIZED DRUG - OTHER] PO
== END ==
LOC: AMB 13:00
PROVIDERS: ATTEND Nurse Practitioner
DX: R55 Syncope and collapse (principal); R53.1 Weakness
CPT/HCPCS: A0425; A0427